=== PATIENT | male | born 1985 | race African-American/Black ===

== ENCOUNTER 2024-02-02 19:36 | Emergency (ER) | payer MEDICAID ==
[~2024-02-02] VITALS: Ht 190.5 cm; Wt 105.0 kg
[2024-02-02 19:48] VITALS: BP 117/70; PULSE 91; RESP 12; TEMP 98.3; O2SAT 98
[2024-02-02] MEDS ORDERED: ACETAMINOPHEN WITH CODEINE 300/30MG TABLET PO ONE (20:00)
[2024-02-02] MEDS ORDERED: IBUPROFEN 400MG TABLET PO ONE (20:00)
[2024-02-02] MEDS ORDERED: IBUP-2028 PO (20:08)
[2024-02-02] MEDS: IBUPROFEN 400MG TABLET PO NR (21:31)
[2024-02-02] MEDS: ACETAMINOPHEN WITH CODEINE 300/30MG TABLET PO NR (21:31)
== END 2024-02-02 21:24 | disposition home or self-care (01) ==
LOC: ER 19:36
DX: M54.30 Sciatica, unspecified side (principal); E11.9 Type 2 diabetes mellitus without complications; I10 Essential (primary) hypertension; Z88.0 Allergy status to penicillin
CPT/HCPCS: 72100; 99283

== ENCOUNTER 2024-11-10 23:23 | Emergency (ER) | payer MEDICAID ==
[~2024-11-10] VITALS: Ht 180.3 cm; Wt 99.0 kg
[~2024-11-10 23:23] MED LIST: IBUP-2028 PO
[2024-11-10 23:30] VITALS: O2SAT 97
[2024-11-10 23:55] VITALS: BP 157/104; PULSE 101; RESP 18; TEMP 36.9; O2SAT 99
[2024-11-11] MEDS ORDERED: SULF1TAB48 MT (00:32)
[2024-11-11] MEDS ORDERED: CEPH500C2 MT (00:32)
== END 2024-11-11 00:45 | disposition home or self-care (01) ==
LOC: ER 23:23
DX: L02.01 Cutaneous abscess of face (principal); E11.9 Type 2 diabetes mellitus without complications; I10 Essential (primary) hypertension; J45.909 Unspecified asthma, uncomplicated; Z79.1 Long term (current) use of non-steroidal anti-inflammatories (NSAID); Z88.0 Allergy status to penicillin
CPT/HCPCS: 99283; A4606